=== PATIENT | female | born 1925 | race American Indian/Alaskan Native ===

== ENCOUNTER 2017-01-08 09:21 | Outpatient (CLI) | payer MEDICARE ==
[2017-01-08 10:09] LABS: Blood Urea Nitrogen 15 mg/dL (7-17)
--- NOTE | 2017-01-09 11:53 | Cat Scan Report ---
CT ABDOMEN PELVIS WITH AND WITHOUT CONTRAST HISTORY: Abdominal pain. TECHNIQUE: Helical CT before and after IV contrast. Oral contrast was administered. Sagittal and coronal reformatted images. FINDINGS: Mild cardiomegaly is present. No pericardial effusion. The visualized lung bases are well aerated. Mild fatty change in the liver is evident. The liver is normal size and contour. No focal liver mass. The portal venous system is patent. 3 or 4 calcified gallstones measure up to 1 cm within the gallbladder fundus. No evidence for biliary dilatation or inflammation. The common bile duct is mildly prominent measuring 6.4 mm in diameter but no choledocholithiasis is detected. This is probably within normal limits given this persons age. The pancreas, spleen and adrenal glands are unremarkable. Focal capsular calcifications in the spleen are noted. The right kidney is unremarkable. There are 3 cysts in the superior left kidney. A 1 cm simple cyst and 2.7 cm simple cyst are identified. The third cyst measures 1 cm and demonstrates slight increased internal density consistent with a hemorrhagic cyst. The bowel loops are normal caliber and wall thickness. Scattered diverticula are noted in the descending colon. No evidence for acute inflammation or bowel obstruction. Normal appendix. The uterus is normal size. 2 or 3 calcified uterine fibroids in the left lateral wall measure up to 1 cm. The adnexa and bladder are unremarkable. There are advanced degenerative changes throughout the thoracolumbar spine. No fracture or suspicious bony lesion. Impression: No acute inflammatory process is appreciated. Cholelithiasis. Left renal cysts. One of the cysts appear slightly complex and is consistent with a hemorrhagic cyst. Mild cardiomegaly. Small uterine fibroids. Mild diverticulosis of the distal colon.
== END 2017-01-08 09:22 | disposition home or self-care (01) ==
LOC: CT 09:21
PROVIDERS: ATTEND Internal Medicine
DX: K80.20 Calculus of gallbladder without cholecystitis without obstruction (principal); K57.30 Diverticulosis of large intestine without perforation or abscess without bleeding; D25.9 Leiomyoma of uterus, unspecified; I51.7 Cardiomegaly; D73.89 Other diseases of spleen; N28.1 Cyst of kidney, acquired; M47.895 Other spondylosis, thoracolumbar region; I10 Essential (primary) hypertension; I48.91 Unspecified atrial fibrillation; E78.00 Pure hypercholesterolemia, unspecified; E03.9 Hypothyroidism, unspecified
CPT/HCPCS: 36415; 74178; 82565; 84520; Q9967